=== PATIENT | female | born 1975 | race Two or more races ===

== ENCOUNTER → 2016-09-30 | Outpatient (REF) | payer OTHER, BC ==
[2016-09-30 13:42] LABS: MEAN CORPUSCULAR HEMOGLOBIN 32.7 pg (27.0-33.0); MEAN CORPUSCULAR HGB CONC 34.1 g/dl (32.0-36.5); RED CELL DISTRIBUTION WIDTH 11.8 % (11.5-14.5); WHITE BLOOD COUNT 8.6 K/mm3 (4.0-10.0)
[2016-09-30 14:20] LABS: ALBUMIN 3.6 GM/DL (3.2-5.2); ALKALINE PHOSPHATASE 53 U/L (45-117); ALT/SGPT 19 U/L (12-78); ANION GAP 8 MEQ/L (8-16); AST/SGOT 9 U/L (15-37); BILIRUBIN,TOTAL 0.4 MG/DL (0.2-1.0); BLOOD UREA NITROGEN 11 MG/DL (7-18); CALCIUM LEVEL 8.3 MG/DL (8.5-10.1); CARBON DIOXIDE LEVEL 26 MEQ/L (21-32); CHLORIDE LEVEL 106 MEQ/L (98-107); CHOLESTEROL LEVEL 137 MG/DL (<200); CREATININE FOR GFR 0.74 MG/DL (0.55-1.02); FREE T4 1.12 NG/DL (0.76-1.46); GLOMERULAR FILTRATION RATE > 60.0 (>58); GLUCOSE, FASTING 98 MG/DL (70-105); MAGNESIUM LEVEL 1.9 MG/DL (1.8-2.4); POTASSIUM SERUM 3.8 MEQ/L (3.5-5.1); SODIUM LEVEL 140 MEQ/L (136-145); TOTAL PROTEIN 7.2 GM/DL (6.4-8.2); TRIGLYCERIDES LEVEL 108 MG/DL (<150)
== END ==
LOC: M LABDRAW1 12:51
PROVIDERS: ATTEND Nurse Practitioner Family
DX: R53.83 Other fatigue (principal); I10 Essential (primary) hypertension; Z83.3 Family history of diabetes mellitus; K21.9 Gastro-esophageal reflux disease without esophagitis

== ENCOUNTER → 2017-03-03 | Outpatient (REF) | payer BC, OTHER ==
[2017-03-03 16:40] LABS: ANION GAP 11 MEQ/L (8-16); BLOOD UREA NITROGEN 9 MG/DL (7-18); CALCIUM LEVEL 8.9 MG/DL (8.5-10.1); CARBON DIOXIDE LEVEL 25 MEQ/L (21-32); CHLORIDE LEVEL 107 MEQ/L (98-107); CREATININE FOR GFR 0.78 MG/DL (0.55-1.02); GLOMERULAR FILTRATION RATE > 60.0 (>58); GLUCOSE, FASTING 126 MG/DL (70-105); POTASSIUM SERUM 3.5 MEQ/L (3.5-5.1); SODIUM LEVEL 143 MEQ/L (136-145)
== END ==
LOC: M LABDRAW1 14:14
PROVIDERS: ATTEND Nurse Practitioner Family
DX: E55.9 Vitamin D deficiency, unspecified (principal); I10 Essential (primary) hypertension

== ENCOUNTER → 2017-08-21 | Outpatient (REF) | payer BC | LOC: M LAB REF 19:08 | DX: N30.00 Acute cystitis without hematuria (principal) | CPT/HCPCS: 87086 ==

== ENCOUNTER 2017-11-16 07:00 | Outpatient (RCR) | payer OTHER | END 2017-12-12 | LOC: M OT 07:00 | DX: Z51.89 Encounter for other specified aftercare (principal); S66.811D Strain of other specified muscles, fascia and tendons at wrist and hand level, right hand, subsequent encounter; W18.30XD Fall on same level, unspecified, subsequent encounter; Y92.009 Unspecified place in unspecified non-institutional (private) residence as the place of occurrence of the external cause ==

== ENCOUNTER → 2018-08-24 | Outpatient (REF) | payer OTHER ==
[2018-08-24 12:25] LABS: BLOOD UREA NITROGEN 14 MG/DL (7-18); CALCIUM LEVEL 8.9 MG/DL (8.5-10.1); CARBON DIOXIDE LEVEL 25 MEQ/L (21-32); CHLORIDE LEVEL 105 MEQ/L (98-107); CREATININE FOR GFR 0.88 MG/DL (0.55-1.30); GLOMERULAR FILTRATION RATE > 60.0 (>58); GLUCOSE, FASTING 111 MG/DL (70-100); POTASSIUM SERUM 4.2 MEQ/L (3.5-5.1); SODIUM LEVEL 138 MEQ/L (136-145)
== END ==
LOC: M SFHCLERA 08:16
PROVIDERS: ATTEND Family Medicine
DX: I10 Essential (primary) hypertension (principal)

== ENCOUNTER → 2018-10-04 | Outpatient (CLI) | payer OTHER | LOC: M RAD 08:31 | PROVIDERS: ATTEND Family Medicine | DX: Z53.9 Procedure and treatment not carried out, unspecified reason (principal); Z12.31 Encounter for screening mammogram for malignant neoplasm of breast ==

== ENCOUNTER → 2020-06-19 | Outpatient (CLI) | payer SELFPAY | LOC: M LABSMTC 11:37 | PROVIDERS: ATTEND Pediatrics | DX: Z20.822 Contact with and (suspected) exposure to COVID-19 (principal) ==

== ENCOUNTER → 2021-05-20 | Outpatient (CLI) | payer OTHER ==
[2021-05-20 13:53] LABS: BLOOD UREA NITROGEN 14 MG/DL (7-18); CALCIUM LEVEL 8.7 MG/DL (8.5-10.1); CARBON DIOXIDE LEVEL 25 MEQ/L (21-32); CHLORIDE LEVEL 108 MEQ/L (98-107); CHOLESTEROL LEVEL 147 MG/DL (<200); CREATININE FOR GFR 0.79 MG/DL (0.55-1.30); GLOMERULAR FILTRATION RATE > 60.0 (>58); GLUCOSE, FASTING 116 MG/DL (70-100); HDL CHOLESTEROL 79 MG/DL (>40); LDL CHOLESTEROL 53 MG/DL (<100); NON-HDL-C 68 MG/DL; POTASSIUM SERUM 4.1 MEQ/L (3.5-5.1); SODIUM LEVEL 141 MEQ/L (136-145); TRIGLYCERIDES LEVEL 76 MG/DL (<150)
[2021-05-20 14:17] LABS: HEMOGLOBIN A1c 5.4 %
== END ==
LOC: M PLALAB 09:18
PROVIDERS: ATTEND Family Medicine
DX: Z13.1 Encounter for screening for diabetes mellitus (principal); Z13.220 Encounter for screening for lipoid disorders

== ENCOUNTER → 2021-07-24 | Outpatient (CLI) | payer OTHER | LOC: M LABSMTC 12:06 | PROVIDERS: ATTEND Pediatrics | DX: Z20.822 Contact with and (suspected) exposure to COVID-19 (principal) | CPT/HCPCS: C9803; U0003 ==

== ENCOUNTER → 2022-11-20 | Outpatient (CLI) | payer OTHER ==
[2022-11-20 12:26] LABS: ALBUMIN 3.7 G/DL (3.2-5.2); ALKALINE PHOSPHATASE 50 U/L (46-116); ALT/SGPT 22 U/L (7.0-40); AST/SGOT 13 U/L (<34); BILIRUBIN,TOTAL 0.5 MG/DL (0.3-1.2); BLOOD UREA NITROGEN 10 MG/DL (9-23); CALCIUM LEVEL 8.2 MG/DL (8.5-10.1); CARBON DIOXIDE LEVEL 24 MMOL/L (20-31); CHLORIDE LEVEL 107 MMOL/L (98-107); CHOLESTEROL LEVEL 133 MG/DL (<200); CHOLESTEROL RISK RATIO 1.85 (<5); CREATININE FOR GFR 0.68 MG/DL (0.55-1.30); GLOMERULAR FILTRATION RATE > 60.0 (>58); GLUCOSE, FASTING 100 MG/DL (60-100); HDL CHOLESTEROL 71.7 MG/DL (>40); LDL CHOLESTEROL 47.5 MG/DL (<100); MAGNESIUM LEVEL 1.6 MG/DL (1.8-2.4); NON-HDL-C 61.3 MG/DL; POTASSIUM SERUM 3.9 MMOL/L (3.5-5.1); SODIUM LEVEL 138 MMOL/L (136-145); TOTAL PROTEIN 6.8 G/DL (5.7-8.2); TRIGLYCERIDES LEVEL 69 MG/DL (<150)
[2022-11-20 12:27] LABS: FREE T4 1.22 NG/DL (0.89-1.76); THYROID STIMULATING HORMONE 2.103 uIU/ML (0.55-4.78)
[2022-11-20 12:30] LABS: HEMOGLOBIN A1c 5.3 % (4.0-6.0)
== END ==
LOC: M RAD 10:52
PROVIDERS: ATTEND Family Medicine
DX: R00.2 Palpitations (principal); E66.9 Obesity, unspecified

== ENCOUNTER → 2024-10-26 | Outpatient (CLI) | payer OTHER ==
[2024-10-26 11:14] LABS: BASO # 0.1 10^3/uL (0.0-0.2); BASO % 0.8 % (0.0-1.0); EOS # 0.3 10^3/uL (0.0-0.5); EOS % 3.6 % (0.0-3.0); HEMATOCRIT 41.2 % (36.0-47.0); HEMOGLOBIN 14.5 g/dl (12.0-15.5); LYMPH # 2.1 10^3/uL (1.5-5.0); LYMPH % 25.6 % (24.0-44.0); MEAN CORPUSCULAR HEMOGLOBIN 33.7 pg (27.0-33.0); MEAN CORPUSCULAR HGB CONC 35.2 g/dl (32.0-36.5); MEAN CORPUSCULAR VOLUME 95.8 fl (80.0-96.0); MONO # 0.6 10^3/uL (0.0-0.8); MONO % 6.8 % (2.0-8.0); NEUTROPHILS # 5.2 10^3/uL (1.5-8.5); PLATELET COUNT, AUTOMATED 354 10^3/uL (150-450); WHITE BLOOD COUNT 8.3 10^3/uL (4.0-10.0)
[2024-10-26 11:37] LABS: HEMOGLOBIN A1c 5.4 % (4.0-6.0)
[2024-10-26 11:53] LABS: ALBUMIN 3.9 G/DL (3.2-5.2); ALKALINE PHOSPHATASE 45 U/L (35-104); ALT/SGPT 20 U/L (7.0-40); AST/SGOT 14 U/L (<34); BILIRUBIN,TOTAL 0.6 MG/DL (0.3-1.2); BLOOD UREA NITROGEN 14 MG/DL (9-23); CALCIUM LEVEL 9.4 MG/DL (8.5-10.1); CARBON DIOXIDE LEVEL 28 MMOL/L (20-31); CHLORIDE LEVEL 104 MMOL/L (98-107); CHOLESTEROL LEVEL 162 MG/DL (<200); CHOLESTEROL RISK RATIO 2.03 (<5); CREATININE FOR GFR 0.74 MG/DL (0.55-1.30); GLOMERULAR FILTRATION RATE > 90.0 (>51); GLUCOSE, FASTING 109 MG/DL (60-100); HDL CHOLESTEROL 79.7 MG/DL (>40); LDL CHOLESTEROL 69.7 MG/DL (<100); NON-HDL-C 82.3 MG/DL; POTASSIUM SERUM 4.5 MMOL/L (3.5-5.1); SODIUM LEVEL 139 MMOL/L (136-145); THYROID STIMULATING HORMONE 1.688 uIU/ML (0.55-4.78); TOTAL PROTEIN 7.5 G/DL (5.7-8.2); TRIGLYCERIDES LEVEL 63 MG/DL (<150)
== END ==
LOC: M LAB 09:48
PROVIDERS: ATTEND Family Medicine
DX: I10 Essential (primary) hypertension (principal); E66.9 Obesity, unspecified; Z68.36 Body mass index [BMI] 36.0-36.9, adult

== ENCOUNTER 2025-05-03 09:26 | Day surgery (SDC) | payer OTHER ==
[~2025-05-03] VITALS: Ht 157.5 cm; Wt 79.4 kg
[~2025-05-03 09:26] MED LIST: LOSA100T8 PO; MAGN250T11 PO; PANT40TA29 PO; SEMA1PEN4 SQ; THERTAB52 PO; nutrafol
[2025-05-03] MEDS ORDERED: LIDOCAINE 2% 100 MG/5 ML SDV (FOR ANES.) As Ordered ONE (11:08)
[2025-05-03 11:25] VITALS: TEMP 97.6
[2025-05-03 11:44] VITALS: BP 120/77; O2SAT 100
== END 2025-05-03 11:55 | disposition home or self-care (01) ==
LOC: M OPP 09:26
PROVIDERS: ATTEND Surgery
DX: Z12.11 Encounter for screening for malignant neoplasm of colon (principal); D12.5 Benign neoplasm of sigmoid colon; K64.0 First degree hemorrhoids; Z88.8 Allergy status to other drugs, medicaments and biological substances; Z79.85 Long-term (current) use of injectable non-insulin antidiabetic drugs; Z79.899 Other long term (current) drug therapy; F17.210 Nicotine dependence, cigarettes, uncomplicated